=== PATIENT | female | born 1975 | race African-American/Black ===

== ENCOUNTER 2022-04-25 17:51 | Emergency (ER) | payer OTHER ==
[~2022-04-25] VITALS: Ht 175.3 cm; Wt 107.0 kg
[~2022-04-25 17:51] MED LIST: ACETAMIN325 MG PO; ACIDOPHILUS PO; BARIATRIC VITAMIN PO; CIPRO500 MG PO; COUMADIN2 MG PO; DIOVAN80 MG PO; LISINOPRIL20 MG PO; LORTAB 7.5 PO; NO HOME MEDS; PROTONIX40 M2 PO; TOPROL XL100 MG PO; VICODIN1 TAB PO; ZYVOX600 MG PO
[2022-04-25 18:42] VITALS: BP 134/69
[2022-04-25 19:01] VITALS: BP 118/61
[2022-04-25] MEDS ORDERED: CYCLOBENZAPRINE10 MG PO (22:00)
[2022-04-25] MEDS ORDERED: NAPROXEN500 MG PO (22:00)
[2022-04-25 22:39] VITALS: BP 118/61
== END 2022-04-25 22:39 | disposition home or self-care (01) | DRG 554 ==
LOC: ED 17:51
DX: M19.09 Primary osteoarthritis, other specified site (principal)